=== PATIENT | female | born 1965 | race Hispanic/Latino ===

== ENCOUNTER 2021-10-01 09:20 | Observation (INO) | payer BC ==
[2021-10-01] MEDS ORDERED: Azithromycin 500 MG VIAL ONE (10:18)
[2021-10-01] MEDS ORDERED: cefTRIAXone\\ROCEPHIN 1 GM VIAL ONE (10:18)
[2021-10-01] MEDS ORDERED: Acetaminophen 500 MG TAB ONE (10:18)
[2021-10-01 10:47] LABS: Hemoglobin 13.6 g/dL (12.0-15.5); MDiff Complete? YES; Mean Corpuscular HGB CONC 32.7 g/dL (32.0-36.0); Mean Corpuscular Hemoglobin 30.2 pg (27.0-33.0); Mean Corpuscular Volume 92.2 fl (81.6-98.3); Mean Platelet Volume 10.6 fl (7.4-10.4); Platelet Count 246 10x3/uL (150-450); RBC Distribution Width 14.2 % (11.5-14.5); Red Blood Cell (RBC) Count 4.51 10x6/uL (3.90-5.03); White Blood Cell (WBC) Count 15.2 10x3/uL (3.5-10.5)
[2021-10-01 10:58] LABS: ALT (SGPT) 163 U/L (8-55); AST (SGOT) 69 U/L (5-34); Albumin 4.5 g/dL (3.5-5.0); Alkaline Phosphatase 141 U/L (40-110); Anion Gap 13 mmol/L (10-20); BUN (Urea Nitrogen) 13 mg/dL (9.8-20.1); Bilirubin, Total 0.8 mg/dL (0.2-1.2); Calc. Creatinine Clearance 0 mL/min (70-130); Calcium 9.7 mg/dL (7.8-10.44); Carbon Dioxide 29 mmol/L (22-29); Chloride 97 mmol/L (98-107); Globulin 3.8 g/dL (2.4-3.5); Glucose 153 mg/dL (70-105); Potassium 3.4 mmol/L (3.5-5.1); Protein, Total 8.3 g/dL (6.0-8.3); Sodium 136 mmol/L (136-145)
[2021-10-01 11:15] LABS: Lymphocytes 31 % (21-51); Monocytes 6 % (0-10); Neutrophil 63 % (42-75); Platelet Morphology Comment Appears Adequate
[2021-10-01 11:33] LABS: Bilirubin Neg (Negative); Blood, Urine Negative (Negative); Clarity Clear (Clear); Glucose, Urine (Dipstick) Normal (Negative); Ketone, Urine Negative (Negative); Leukocyte Negative (Negative); Nitrite Negative (Negative); Protein, Urine (Dipstick) Negative (Neg-Trace); Urobilinogen Normal mg/dL (Less than 2); pH, Urine 6.5 (5.0-9.0)
[2021-10-01 11:42] LABS: SARS-CoV-2 NAA Rapid Test DETECTED (NotDetected)
[2021-10-01] MEDS ORDERED: Dexamethasone 10 MG/ML VIAL ONE (12:31)
[2021-10-01 14:20] VITALS: BMI 25.4
[2021-10-01] MEDS ORDERED: Benzonatate 100 MG CAP PO SCH (15:45)
[2021-10-01] MEDS ORDERED: Ondansetron ODT 4 MG TAB PO PRN (15:58)
[2021-10-01] MEDS ORDERED: Dextrose 5% in Water 1,000 ML IV PRN ×2 (15:58→22:15)
[2021-10-01] MEDS ORDERED: Acetaminophen 325 MG TAB PO PRN (15:58)
[2021-10-01] MEDS ORDERED: Dextrose 50% Abboject 50 ML SYRINGE SLOW IVP PRN ×2 (15:58→22:15)
[2021-10-01] MEDS ORDERED: Electrolyte Replacement Protocol 1 EACH FS PRN (16:00)
[2021-10-01] MEDS ORDERED: Sodium Chloride 0.9% 1,000 ML IV SCH (16:00)
[2021-10-01] MEDS: metFORMIN 500 MG TAB PO SCH (16:50)
[2021-10-01] MEDS ORDERED: Enoxaparin Sodium 40 MG/0.4 ML SYRINGE SC SCH (17:00)
[2021-10-01] MEDS ORDERED: Potassium Chloride 20 MEQ TAB PO SCH (17:00)
[2021-10-01] MEDS ORDERED: REMDESIVIR 200 MG in Sodium Chloride 0.9% 250 ML 210 ML IV SCH (17:30)
[2021-10-01 18:24] LABS: CRP (Inflammatory) 14.15 mg/dL (= or < 0.5); Magnesium 2.1 mg/dL (1.6-2.6)
[2021-10-01] MEDS: Benzonatate 100 MG CAP PO SCH (20:54)
[2021-10-01] MEDS: Cholecalciferol 1,000 UNITS (25 MCG) TAB PO SCH (20:54)
[2021-10-01] MEDS: Dexamethasone 20 MG/5 ML VIAL SLOW IVP SCH (20:54)
[2021-10-01] MEDS: HumaLOG 300 UNITS/3 ML VIAL SC PRN (22:59)
[2021-10-02 05:34] LABS: #Monocytes 0.2 10x3/uL (0.0-1.1); #Neutrophils 10.2 10x3/uL (1.5-8.4); %Basophils 0.1 % (0.0-2.0); %Lymphocytes 23.6 % (18.0-47.0); %Monocytes 1.4 % (0.0-10.0); %Neutrophils 74.5 % (40.0-75.0); Hemoglobin 12.3 g/dL (12.0-15.5); Mean Corpuscular HGB CONC 32.5 g/dL (32.0-36.0); Mean Corpuscular Hemoglobin 30.5 pg (27.0-33.0); Mean Platelet Volume 10.8 fl (7.4-10.4); Platelet Count 216 10x3/uL (150-450); RBC Distribution Width 14.2 % (11.5-14.5); Red Blood Cell (RBC) Count 4.03 10x6/uL (3.90-5.03); White Blood Cell (WBC) Count 13.6 10x3/uL (3.5-10.5)
[2021-10-02] MEDS: Levothyroxine Sodium 50 MCG TAB PO SCH (05:57)
[2021-10-02 06:00] LABS: ALT (SGPT) 144 U/L (8-55); AST (SGOT) 55 U/L (5-34); Albumin 3.8 g/dL (3.5-5.0); Alkaline Phosphatase 116 U/L (40-110); Anion Gap 11 mmol/L (10-20); BUN (Urea Nitrogen) 15 mg/dL (9.8-20.1); Bilirubin, Total 0.3 mg/dL (0.2-1.2); Calc. Creatinine Clearance 88 mL/min (70-130); Calcium 9.4 mg/dL (7.8-10.44); Carbon Dioxide 27 mmol/L (22-29); Chloride 109 mmol/L (98-107); Globulin 3.3 g/dL (2.4-3.5); Glucose 203 mg/dL (70-105); Potassium 4.1 mmol/L (3.5-5.1); Protein, Total 7.1 g/dL (6.0-8.3); Sodium 143 mmol/L (136-145)
[2021-10-02] MEDS: Benzonatate 100 MG CAP PO SCH ×3 (09:02→21:09)
[2021-10-02] MEDS: metFORMIN 500 MG TAB PO SCH ×2 (09:02→16:49)
[2021-10-02] MEDS: Aspirin 81 mg Enteric Coated Tablet PO SCH (09:02)
[2021-10-02] MEDS: Enoxaparin Sodium 40 MG/0.4 ML SYRINGE SC SCH (09:02)
[2021-10-02] MEDS: Zinc Sulfate 220 MG CAP PO SCH (09:02)
[2021-10-02] MEDS: Ascorbic Acid 500 mg Chewable Tablet PO SCH (09:02)
[2021-10-02] MEDS: Dexamethasone 20 MG/5 ML VIAL SLOW IVP SCH ×2 (09:03→21:10)
[2021-10-02] MEDS: Azithromycin 500 MG in Sodium Chloride 0.9% 250 ML 250 ML IVPB SCH (09:12)
[2021-10-02] MEDS: HumaLOG 300 UNITS/3 ML VIAL SC PRN ×3 (09:20→21:37)
[2021-10-02] MEDS: cefTRIAXone\\ROCEPHIN 1 GM in Sodium Chloride 0.9% 100 ML IVPB SCH (11:13)
[2021-10-02] MEDS: REMDESIVIR 100 MG in Sodium Chloride 0.9% 250 ML 230 ML IV SCH (15:03)
[2021-10-02] MEDS: Cholecalciferol 1,000 UNITS (25 MCG) TAB PO SCH (21:09)
[2021-10-03] MEDS: Levothyroxine Sodium 50 MCG TAB PO SCH (05:04)
[2021-10-03 05:10] LABS: #Monocytes 0.2 10x3/uL (0.0-1.1); #Neutrophils 14.7 10x3/uL (1.5-8.4); %Basophils 0.1 % (0.0-2.0); %Lymphocytes 16.7 % (18.0-47.0); %Monocytes 1.3 % (0.0-10.0); %Neutrophils 81.3 % (40.0-75.0); Mean Corpuscular HGB CONC 32.9 g/dL (32.0-36.0); Mean Corpuscular Hemoglobin 30.4 pg (27.0-33.0); Mean Corpuscular Volume 92.4 fl (81.6-98.3); Platelet Count 259 10x3/uL (150-450); RBC Distribution Width 14.3 % (11.5-14.5); Red Blood Cell (RBC) Count 3.95 10x6/uL (3.90-5.03)
[2021-10-03] MEDS: HumaLOG 300 UNITS/3 ML VIAL SC PRN ×2 (05:10→12:00)
[2021-10-03 05:33] LABS: ALT (SGPT) 126 U/L (8-55); AST (SGOT) 33 U/L (5-34); Albumin 3.7 g/dL (3.5-5.0); Alkaline Phosphatase 113 U/L (40-110); Anion Gap 12 mmol/L (10-20); BUN (Urea Nitrogen) 18 mg/dL (9.8-20.1); Bilirubin, Total 0.3 mg/dL (0.2-1.2); Calc. Creatinine Clearance 77 mL/min (70-130); Calcium 9.5 mg/dL (7.8-10.44); Carbon Dioxide 28 mmol/L (22-29); Chloride 106 mmol/L (98-107); Glucose 248 mg/dL (70-105); Potassium 3.8 mmol/L (3.5-5.1); Protein, Total 6.7 g/dL (6.0-8.3); Sodium 142 mmol/L (136-145)
[2021-10-03] MEDS: Ascorbic Acid 500 mg Chewable Tablet PO SCH (09:36)
[2021-10-03] MEDS: Zinc Sulfate 220 MG CAP PO SCH (09:36)
[2021-10-03] MEDS: Benzonatate 100 MG CAP PO SCH ×2 (09:36→15:38)
[2021-10-03] MEDS: Azithromycin 500 MG in Sodium Chloride 0.9% 250 ML 250 ML IVPB SCH (09:36)
[2021-10-03] MEDS: Aspirin 81 mg Enteric Coated Tablet PO SCH (09:36)
[2021-10-03] MEDS: metFORMIN 500 MG TAB PO SCH ×2 (09:36→17:23)
[2021-10-03] MEDS: Enoxaparin Sodium 40 MG/0.4 ML SYRINGE SC SCH (09:36)
[2021-10-03] MEDS: Dexamethasone 20 MG/5 ML VIAL SLOW IVP SCH (09:36)
[2021-10-03] MEDS ORDERED: guaiFENesin/DM ER PO SCH ×3 (09:45→21:00)
[2021-10-03] MEDS: cefTRIAXone\\ROCEPHIN 1 GM in Sodium Chloride 0.9% 100 ML IVPB SCH (11:44)
[2021-10-03] MEDS: REMDESIVIR 100 MG in Sodium Chloride 0.9% 250 ML 230 ML IV SCH (15:38)
[2021-10-03 15:48] VITALS: BP 135/85; TEMP 98.5
== END 2021-10-03 18:28 | disposition home or self-care (01) ==
LOC: CSHERS 09:20 → CSHTELE 13:48
PROVIDERS: ADMIT Internal Medicine; ATTEND Internal Medicine
DX: A41.89 Other specified sepsis (principal); U07.1 COVID-19; J96.01 Acute respiratory failure with hypoxia; R74.01 Elevation of levels of liver transaminase levels; E87.6 Hypokalemia; E11.9 Type 2 diabetes mellitus without complications; E03.9 Hypothyroidism, unspecified; Z79.899 Other long term (current) drug therapy; Z79.84 Long term (current) use of oral hypoglycemic drugs
CPT/HCPCS: 36415; 36416; 71045; 71275; 80053; 81003; 83605; 83735; 84145; 85025; 86140; 87040; 93005; 94760; 94762; 96365; 96367; 96372; 96375; 96376; G0378; J0456; J0696; J1100; J1650; J1815; J3490; J7050; U0002